=== PATIENT | female | born 1975 | race African-American/Black ===

== ENCOUNTER 2017-09-27 17:34 | Emergency (ER) | payer OTHER ==
[~2017-09-27] VITALS: Ht 170.2 cm; Wt 127.9 kg
[2017-09-27 17:37] VITALS: BP 155/109
[2017-09-27] MEDS ORDERED: METFORMIN HCL500 MG PO (17:52)
[2017-09-27] MEDS ORDERED: GLYBURIDE 5 MG T5 M1 PO (17:53)
[2017-09-27] MEDS ORDERED: BYETTA PEN 51 PENIN1 SUBQ (17:53)
[2017-09-27] MEDS ORDERED: GEMFIBROZIL 60600 MG PO (17:54)
[2017-09-27] MEDS ORDERED: COREG25 MG PO (17:54)
[2017-09-27] MEDS ORDERED: IRON325 PO (17:54)
[2017-09-27] MEDS ORDERED: HYDROCHLOROTHIA25 M2 PO (17:55)
[2017-09-27] MEDS ORDERED: ZYRTEC10 M5 PO (17:56)
[2017-09-27] MEDS ORDERED: FLONASE 0.05%50 MCG NASAL (17:56)
[2017-09-27] MEDS ORDERED: ACYCLOVIR 800800 MG PO (17:58)
[2017-09-27] MEDS ORDERED: TRAMADOL 50 MG50 MG PO (17:58)
== END 2017-09-27 18:07 | disposition home or self-care (01) ==
LOC: ER 17:34
DX: B02.9 Zoster without complications (principal); Z88.8 Allergy status to other drugs, medicaments and biological substances